=== PATIENT | male | born 1980 | race African-American/Black ===

== ENCOUNTER 2017-08-19 16:45 | Emergency (ER) | payer OTHER ==
[~2017-08-19] VITALS: Ht 167.6 cm; Wt 74.8 kg
[~2017-08-19 16:45] MED LIST: IBUPROFEN 600600 M1 PO; LISINOPRIL10 MG PO
[2017-08-19] MEDS ORDERED: XANAX 0.25 MG0.25 MG PO (16:49)
[2017-08-19 17:37] VITALS: BP 155/100
== END 2017-08-19 17:38 ==
LOC: ER 16:45
DX: F41.9 Anxiety disorder, unspecified (principal); J06.9 Acute upper respiratory infection, unspecified; I10 Essential (primary) hypertension; F17.210 Nicotine dependence, cigarettes, uncomplicated; Z88.0 Allergy status to penicillin